=== PATIENT | female | born 1930 | race Caucasian/White ===

== ENCOUNTER 2019-05-18 22:06 | Inpatient (IN) ==
[2019-05-18] MEDS ORDERED: MORPHINE IV ONE (22:20)
[2019-05-18] MEDS ORDERED: DUONEB (A & A) INH ONE (22:20)
[2019-05-18 23:30] LABS: BASO# 0.01 X1000 (0.0-0.2); BASO% 0.1 % (0.0-0.8); HEMATOCRIT 37.2 % (37.0-47.0); HEMOGLOBIN 11.3 g/dL (12.0-16.0); IMM GRAN# 0.03 X1000 (0.0-0.04); IMM GRAN% 0.2 % (0.0-0.5); LYMPH# 0.55 X1000 (1.2-3.4); LYMPH% 4.5 % (20.5-51.1); MCH 24.7 PG (27-31); MCHC 30.4 g/dL (33-37); MCV 81.2 FL (81-99); MONO# 0.65 X1000 (0.11-0.59); MONO% 5.3 % (1.7-9.3); MPV 10.6 FL (7.4-10.4); NEUT# 11.03 X1000 (1.4-6.5); NEUT% 89.9 % (42.2-75.2); PLT 262 X1000 (130-400); RBC 4.58 XMIL (4.2-5.4); RDW 17.7 % (11.5-14.5); WBC 12.27 X1000 (4.8-10.8)
[2019-05-18 23:32] LABS: AGAP 16; ALB/GLOB RATIO 1.6; ALKALINE PHOSPHATASE 91 U/L (32-104); BUN 13 mg/dL (8-22); CALCIUM 8.6 mg/dL (8.8-10.2); CHLORIDE 96 mmol/L (98-107); CK PROFILE 31 U/L (24-173); COSMO 267; CREATININE 0.8 mg/dL (0.5-0.9); ESTIMATED GFR > 60; GLUCOSE 107 mg/dL (70-104); GOT 24 U/L (10-30); GPT 14 U/L (10-36); POTASSIUM 3.5 mmol/L (3.5-5.1); SODIUM 133 mmol/L (136-145); TCO2 21 mmol/L (25-35); TOTAL BILIRUBIN 0.39 mg/dL (0.20-1.00); TOTAL PROTEIN 6.5 g/dL (6.3-8.3)
[2019-05-18 23:33] LABS: INR 1.1; PROTIME 14.3 Seconds (11.0-16.0); PTT 27.2 Seconds (22.3-41.8)
[2019-05-19] MEDS ORDERED: ZOSYN 3.375 GM in NS 50 ML IV ONE (00:27)
[2019-05-19] MEDS ORDERED: VANCOMYCIN 1 GM/NS 1 GM/250 ML IVPB IV ONE (00:27)
[2019-05-19] MEDS ORDERED: NS 1,000 ML IV ONE ×3 (00:28→10:27)
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
[2019-05-19] MEDS ORDERED: DUONEB (A & A) INH PRN ×2 (01:15→06:19)
[2019-05-19] MEDS ORDERED: TYLENOL PO ONE ×2 (02:04→05:49)
[2019-05-19] MEDS: DUONEB (A & A) INH SCH ×7 (03:35→23:30)
[2019-05-19] MEDS ORDERED: TYLENOL PO PRN (05:48)
--- NOTE | 2019-05-19 05:55 | Diag Imaging Result Doc PS360 ---
EXAM: CHEST-1 VIEW HISTORY: sob, fever TECHNIQUE: Single view COMPARISON: 03/24/2019 FINDINGS: The lungs are well expanded. No cardiomegaly. Small right pleural effusion. There are increased interstitial markings. Right perihilar density. Small hiatal hernia. IMPRESSION: Pneumonia with pulmonary edema. Short-term follow-up or CT recommended to ensure there is no right perihilar mass. Electronically signed by Jean Vasquez 05/19/2019 5:52 AM
[2019-05-19] MEDS ORDERED: ROCEPHIN 1 GM in NS 50 ML IV SCH (06:15)
[2019-05-19] MEDS ORDERED: LASIX IV SCH (06:15)
[2019-05-19] MEDS ORDERED: ZITHROMAX 500 MG/NS 500 MG/250 ML IVPB IV SCH (06:15)
[2019-05-19 06:44] LABS: ALLEN TEST YES; BE -3.7 mmoll (-3.0-3.0); BLOOD TYPE ARTERIAL; HCO3-(ACT) 21.8 mmoll (20.0-26.0); METHB 0.8 % (0.0-1.5); O2(CT) 14.2 mL/dL (15.0-23.0); PCO2(98.6) 34 mmHg (35-45); SAMPLE BLOOD; SAO2 88.5 % (95.0-100.0); THB 11.8 g/dL (11.5-17.4); pH(98.6) 7.39 (7.35-7.45)
[2019-05-19 06:47] LABS: MODALITY CANNULA; O2HB 85.8 % (95.0-99.0); PO2(98.6) 44 mmHg (60-100)
[2019-05-19] MEDS ORDERED: PROTONIX PO SCH (07:00)
[2019-05-19] MEDS ORDERED: PRILOSEC PO SCH (07:00)
--- NOTE | 2019-05-19 07:44 | Diag Imaging Result Doc PS360 ---
EXAM: PELVIS HISTORY: fall, hip pain TECHNIQUE: Single view COMPARISON: 10/14/2010 FINDINGS: Long-standing bilateral hip and pubic symphysis arthritis. No fracture or dislocation. IMPRESSION: No acute bony injury. Electronically signed by Jean Vasquez 05/19/2019 7:42 AM
--- NOTE | 2019-05-19 07:47 | Diag Imaging Result Doc PS360 ---
EXAM: LUMBAR SPINE HISTORY: fall back pain TECHNIQUE: AP and lateral with obliques, five views COMPARISON: None. FINDINGS: Prominent degenerative changes with several vacuum discs. Disc space narrowing and subluxation of L4-5. No acute fracture. Prominent atherosclerosis. IMPRESSION: No acute bony injury. Electronically signed by Jean Vasquez 05/19/2019 7:45 AM
[2019-05-19] MEDS: LOPRESSOR PO SCH ×2 (08:36→21:29)
[2019-05-19] MEDS: CYMBALTA PO SCH (08:36)
[2019-05-19] MEDS: ZYLOPRIM PO SCH (08:36)
[2019-05-19] MEDS: SYNTHROID PO SCH (08:36)
[2019-05-19] MEDS: ZOLOFT PO SCH (08:37)
[2019-05-19] MEDS: MYCOSTATIN SUSP PO SCH ×4 (08:44→21:29)
[2019-05-19] MEDS ORDERED: PLETAL PO SCH (09:00)
--- NOTE | 2019-05-19 09:03 | Diag Imaging Result Doc PS360 ---
EXAM: CHEST-1 VIEW HISTORY: positive sepsis TECHNIQUE: Single view COMPARISON: 05/18/2019 FINDINGS: Worsening atelectasis and infiltrates in the right lung. There is a small to moderate-sized right pleural effusion. Left lung remains well expanded and clear. Mild pulmonary edema. IMPRESSION: Interval worsening Electronically signed by Jean Vasquez 05/19/2019 9:00 AM
[2019-05-19] MEDS ORDERED: NS 1,000 ML ONE (10:13)
[2019-05-19 10:25] LABS: BASO# 0.02 X1000 (0.0-0.2); BASO% 0.2 % (0.0-0.8); HEMATOCRIT 36.6 % (37.0-47.0); HEMOGLOBIN 11.1 g/dL (12.0-16.0); IMM GRAN# 0.03 X1000 (0.0-0.04); IMM GRAN% 0.3 % (0.0-0.5); LYMPH# 0.64 X1000 (1.2-3.4); LYMPH% 5.4 % (20.5-51.1); MCH 25.1 PG (27-31); MCHC 30.3 g/dL (33-37); MCV 82.6 FL (81-99); MONO# 0.68 X1000 (0.11-0.59); MONO% 5.7 % (1.7-9.3); MPV 9.9 FL (7.4-10.4); NEUT# 10.47 X1000 (1.4-6.5); NEUT% 88.4 % (42.2-75.2); PLT 231 X1000 (130-400); RBC 4.43 XMIL (4.2-5.4); WBC 11.84 X1000 (4.8-10.8)
[2019-05-19] MEDS ORDERED: VANCOMYCIN IV PER PHARMACY MISC SCH (10:30)
[2019-05-19 10:31] LABS: INR 1.28; PROTIME 16.2 Seconds (11.0-16.0)
[2019-05-19 10:32] LABS: PTT 28.5 Seconds (22.3-41.8)
[2019-05-19 10:39] LABS: BANDS 2 % (0-1); LYMPHS 20 % (21-51); MONO 4 % (1-9); SEGS 74 % (42-75)
[2019-05-19 10:50] LABS: URINE SOURCE CATH
[2019-05-19 10:50] LABS: ALB/GLOB RATIO 1.8; ALBUMIN 3.7 g/dL (3.5-5.0); CALCIUM 7.9 mg/dL (8.8-10.2); CREATININE 1.2 mg/dL (0.5-0.9); TOTAL BILIRUBIN 0.44 mg/dL (0.20-1.00); TOTAL PROTEIN 5.8 g/dL (6.3-8.3)
--- NOTE | 2019-05-19 10:57 | INFECTIOUS DISEASE CONSULT REP ---
DATE: 05/19/2019 CONCLUSION: The patient has a right perihilar infiltrate which appears to be pneumonia. She also has underlying pulmonary edema. The patient appears to have oral candidiasis. RECOMMENDATIONS: I agree with treating the patient with Rocephin and azithromycin. I have ordered a sputum Gram stain and culture to be done as soon as possible, and also I have ordered immunoglobulin levels. I am going to order nystatin swish and swallow. DISCUSSION: The patient is unable provide a history. The history I got was from the patient's daughter. Approximately 1 day ago the patient started having fever and pulmonary congestion. The daughter states that the patient did cough up some sputum and it had a green color. Her temperature got as high as 103, according to the daughter. Studies done thus far show a CBC with a white blood cell count of 12,270, hemoglobin 11.3, and platelet count 262,000. Blood gases show a pH of 7.39, a PO2 of 44, and a pCO2 of 34. Creatinine is 0.8. GFR is greater than 60. Liver function studies are normal. Blood cultures are pending. Chest x-ray shows right perihilar pneumonia and pulmonary edema. PAST MEDICAL HISTORY/REVIEW OF SYSTEMS: Eyes and Ears: The patient has decreased vision and hearing. Neck: No stiffness. Respiratory: See present illness. Cardiac: No chest pain or palpitations. Gastrointestinal: No nausea, vomiting, or diarrhea. Genitourinary: No dysuria or flank pain. Neurologic: No seizures. No recent loss of motor or sensory function. Integumentary: No rash. OBSTETRIC/GYNECOLOGIC HISTORY: She is a 4, para 4, abortus 0. She had a tubal ligation. PREVIOUS HOSPITALIZATIONS AND OPERATIONS: She has had 4 labor and deliveries, a tubal ligation, a cholecystectomy, abdominal hernia repair, bilateral total knee arthroplasties, and bronchitis. MEDICAL DISEASES: The patient is elderly. She has hypertension and congestive heart failure, hypothyroidism and gastroesophageal reflux disease. INFECTIOUS DISEASE HISTORY: Positive for bronchitis and the daughter does not know for sure, but she thinks her mother is in the past had pneumonia and urinary tract infection. FAMILY HISTORY: Positive for cancer and hypertension. SOCIAL HISTORY: [place] She is . She has a dog as a pet. She does not smoke cigarettes, drink alcoholic beverages or abuse drugs. ALLERGIES: Her only allergy is to iodinated contrast media. MEDICATIONS: The medications taken at home include the following: Allopurinol, cilostazol, Cymbalta, Synthroid, Ativan, Lopressor, Protonix, sertraline, and temazepam. PHYSICAL EXAMINATION: Vital Signs: Temperature earlier was 102.4, now it is 98.4. Pulse 102, respirations 19, blood pressure 152/84. The patient weighs 163 pounds. She is 5 feet 3 inches tall. General: This is an obese, elderly female who is in respiratory distress. Head/Eyes/Ears/Nose/Throat: It was difficult for me to test how good her seeing and vision was because she is in respiratory distress. She does seem to have on her tongue some white coating, which would be suspicious for Archana. Neck: No meningismus. Lungs: Bilateral rhonchi. Cardiovascular: Heart rate is regular. The patient has bilateral leg edema. Abdomen: The abdomen is protuberant it is soft. Bowel sounds are present. The patient did say it hurt her when I palpated the abdomen gently. Extremities: Bilateral leg edema with but no erythema. Neurologic: The patient is in respiratory distress. She did she did answer a question that I asked her and she did move her extremities to request. Thank you for the consultation. cc: MD Miri Salinas MD MTDD
[2019-05-19 10:59] LABS: BILIRUBIN URINE NEGATIVE (NEGATIVE); BLOOD URINE NEGATIVE (NEGATIVE); COLOR YELLOW; GLUCOSE URINE NEGATIVE (NEGATIVE); KETONE URINE NEGATIVE (NEGATIVE); LEUKOCYTES URINE NEGATIVE (NEGATIVE); NITRITE URINE NEGATIVE (NEGATIVE); PROTEIN URINE NEGATIVE (NEGATIVE); SP GRAVITY URINE 1.008; TURBIDITY URINE CLEAR (CLEAR); UROBILINOGEN URINE NORMAL (NORMAL)
[2019-05-19 11:00] LABS: UR EPITHELIAL CELLS <10 /HPF (<10); URINE BACTERIA NEGATIVE /HPF; URINE RBC <10 /HPF (<10); URINE WBC <10 /HPF (<10)
--- NOTE | 2019-05-19 11:11 | PROGRESS NOTE ---
DATE: 05/19/2019 SUBJECTIVE: The patient's chart was reviewed. In summary, patient was admitted in the [facility] hours with underlying pneumonia and associated pulmonary edema. The question was raised as to the possibility of a right perihilar density/mass. The patient was provided IV antibiotics in the emergency department. Admission was arranged. I was contacted this morning from the PVC unit secondary to significant decline in patient's overall status. The patient was noted to be breathing greater than 30 times per minute. Blood pressure had dropped with a systolic less than 100. Upon my arrival, patient was in notable respiratory distress, although was able to communicate verbally. Patient's family was at bedside. Upon discussing history with family, the patient was treated for pneumonia on February 24. The patient did reasonably well after a prolonged course of antibiotic intervention. Patient's family has noted a decrease in her energy over the last 2 months. Yesterday, she began coughing. The cough was noted to be productive of a purulent sputum. She was started on azithromycin and a Medrol Dosepak. In early afternoon, she suffered a fall while preparing for Thanksgiving lunch. Yesterday evening, patient's daughter noted her to be more fatigued. Temperature was noted to be 102.7. She was brought to the emergency department. Currently, patient does note shortness of breath. She also notes some pain in her tailbone, but denies chest pains, or palpitations currently. She is afebrile. She denies nausea, vomiting, abdominal or urinary symptoms. OBJECTIVE: Vital Signs: Temperature 102.4 degrees, heart rate 102, respirations 34, blood pressure 94/48. General: Ill-appearing, moderate respiratory distress. Cardiovascular: Slightly tachycardic. Regular rhythm. No significant murmurs, rubs, or gallops. Pulmonary: Decreased breath sounds bilateral bases. Reasonable air movement. Abdomen: Soft, nontender, nondistended. Positive bowel sounds. Extremities: Moves all extremities well. No significant clubbing, cyanosis, or edema. Dermatologic: Evaluation reveals no evidence of rash. LABORATORY DATA: White blood cell count 11.84, hemoglobin 11.1, hematocrit 36.6, platelet count is 231,000. PT 16.2, INR is 1.28, PTT is 28.5. Sodium 133, potassium 3.5, chloride 96, bicarbonate 21. BUN 13, creatinine 0.8, glucose 107, calcium 8.6, total bilirubin 0.39, total protein 6.5, albumin 4.0, alkaline phosphatase 91. AST 24, ALT 14. ProBNP is elevated at 1545. ASSESSMENT AND PLAN: 1. Community-acquired pneumonia with associated sepsis--patient's overall condition has declined since admission. We will arrange transfer to the intensive care unit. A bolus of normal saline was provided. We will follow this by normal saline at 100 mL an hour. Pressor support will be provided if necessary. We will adjust antibiotics to include Zosyn, levofloxacin and vancomycin therapy. We will follow blood and urine cultures. We will check a sputum culture. We will address patient's respiratory failure as described below. 2. Respiratory failure secondary to underlying pneumonia--as above, upon my evaluation, patient was in mild to moderate respiratory distress. The patient will be placed on BiPAP for comfort reasons and for oxygenation reasons. Dr. King has been consulted. We will treat patient's underlying pneumonia and sepsis as described above. We will continue DuoNebs every 4 hours. 3. Questionable hilar mass--chest x-ray from March did not suggest an underlying mass. This certainly could be simply secondary to underlying pneumonia. Once her clinical condition has stabilized, we will plan CT scan of the chest. We will remain aware that she is allergic to iodine contrast. 4. Hypotension--this is a consequence of her underlying sepsis. We will treat patient with intravenous fluids. As above, we will start pressor support if necessary. 5. Elevated ProBNP--the patient's recent stress testing suggested she had a normal ejection fraction. I suspect this is falsely elevated. We will, however, need to monitor patient's pulmonary status closely with providing intravenous fluids in the setting of her having an underlying effusion and possible edema. At this point, the benefits of maintaining her underlying pressure outweighs the risk of intravenous fluids. We will follow this closely. 6. Ankylosing spondylitis--we will remain aware. 7. Recent fall--patient denies having a syncopal episode associated. X-rays did not suggest bony abnormalities. We will continue supportive care. 8. Hypothyroidism--we will continue patient on levothyroxine replacement. 9. Depression--we will continue patient on Cymbalta therapy. 10. Reflux disease--we will continue patient on pantoprazole therapy. 11. Fluid, electrolytes, nutrition. We will monitor electrolytes. Normal saline bolus followed by 100 mL an hour on nothing by mouth prophylaxis. Patient will initially be placed on sequential compression devices. We will consider low-dose Lovenox once her condition has stabilized. cc: MD Miri Street MD
[2019-05-19] MEDS ORDERED: SODIUM CHLORIDE 0.9% INJ SCH (11:30)
--- NOTE | 2019-05-19 11:32 | EKG Report ---
Test Performed on : 05/19/2019 09:48:54 AM Test Reason : sob Blood Pressure : / mmHG Vent. Rate : 096 BPM Atrial Rate : 096 BPM P-R Int : 176 ms QRS Dur : 078 ms QT Int : 390 ms P-R-T Axes : 040 -14 035 degrees QTc Int : 492 ms Sinus rhythm. with premature atrial complexes. Moderate voltage criteria for LVH, may be normal variant Prolonged QT Abnormal ECG When compared with ECG of 28-OCT-2012 09:52, premature atrial complexes. are now present Criteria for Septal infarct are no longer present T wave amplitude has increased in Anterior leads Confirmed by Don DUTTON, P.J.M ([id number]) on 05/20/2019 2:56:46 PM
[2019-05-19] MEDS ORDERED: VANCOMYCIN 1,450 MG in NS 250 ML IV ONE (12:00)
--- NOTE | 2019-05-19 12:27 | HISTORY AND PHYSICAL ---
CHIEF COMPLAINT: Cough for about 1 to 2 days. HISTORY OF PRESENT ILLNESS: Ms Sherron Duran is an 89-year-old female with a history of multiple medical conditions including congestive heart failure, hypertension, gastroesophageal reflux disease as well as a hyperlipidemia. The patient did experience a fall prior to presentation. When she presented to the emergency room, she also gives a history of having a cough which has been present for about 1 to 2 days, productive of greenish-yellow sputum. She has had associated shortness of breath as well as wheezing. She does not have any hemoptysis, no chest pain and she does not smoke cigarettes. She did have a chest x-ray done at the time of presentation which showed evidence of pneumonia with pulmonary edema. The patient has now been admitted to the floor now for further management. Of note, according to the patient's daughter, the patient was diagnosed with pneumonia sometime in February and was given some antibiotics. PAST MEDICAL HISTORY: Obstructive sleep apnea, congestive heart failure, diverticulosis, irritable bowel syndrome, hypertension, gastroesophageal reflux disease, hyperlipidemia, hypothyroidism, ankylosing spondylitis, spondylosis, mixed hyperlipidemia, major depression, recurrent gout. SOCIAL HISTORY: No history of cigarette smoking, alcohol or drug use. ALLERGIES: Patient is allergic to IV contrast dye. FAMILY HISTORY: Positive for cancer. PAST SURGICAL HISTORY: Patient has had bilateral tubal ligation, bilateral total knee surgery as well as a cholecystectomy. She has also had abdominal hernia repair, and also gum surgery. MEDICATIONS: Allopurinol 300 mg p.o. daily, levothyroxine 112 mcg p.o. daily, potassium 20 mEq p.o. daily, temazepam 50 mg p.o. at bedtime, cilostazol 100 mg p.o. twice a day, Cymbalta 60 mg p.o. daily, metoprolol 50 mg p.o. twice a day, pantoprazole 40 mg p.o. daily, sertraline 100 g p.o. daily, azithromycin 200 mg p.o. daily, benzonatate 100 mg p.o. daily, Lorazepam 0.5 mg every 6 to 8 hours p.r.n. REVIEW OF SYSTEMS: Constitutional: Has fever. Central nervous system: Has headaches. Eyes: Has blurred vision. ENT: Has impaired hearing. Cardiovascular: No chest pain. Gastrointestinal: Has some nausea along with some intermittent diarrhea with constipation. No abdominal pain. Genitourinary: No dysuria. Musculoskeletal: Has ankylosing spondylitis. Hematology: No bleeding problems. Dermatologic: No skin lesions. Psychiatric: Has anxiety with depression. Endocrinology: No diabetes or thyroid disease. PHYSICAL EXAMINATION: VITAL SIGNS: Temperature is 100.7 degrees, pulse is 109, respiratory rate 28, blood pressure 160/88, oxygen saturation is 92%. HEENT: Atraumatic, normocephalic. She is anicteric. No oral lesions but mucosa around the mouth look dry. NECK: No lymphadenopathy or thyromegaly. CARDIOVASCULAR: S1, S2. She does have rales in both lung aldrich. ABDOMEN: Soft, nontender. No masses felt. EXTREMITIES: No evidence of edema. CENTRAL NERVOUS SYSTEM: No obvious focal deficits noted. LABORATORY DATA: WBC is 12.27, hematocrit is 37.2 with a platelet count of 262,000. Sodium is 133, potassium 3.5, chloride 96, bicarb 21, BUN is 13, creatinine 0.8. INR is 1.1. IMAGING: X-ray chest shows pulmonary edema with pneumonia. Short-term followup or CT scan recommended to ensure that there is no right perihilar mass. ASSESSMENT AND PLAN: 1.Acute hypoxic respiratory failure.Oxygen supplementation. Treat pulmonary conditions-pneumonia/pulmonary edema Consult with Pulmonology. 2 Community-acquired Pneumonia. Place patient on empiric antibiotics. Obtain sputum as well as blood cultures. Nebulized bronchodilators as needed. 3. Sepsis. Continue antibiotics. Follow up on cultures. Intravenous fluids as needed. 4 Probable acute diastolic congestive heart failure. Monitor intakes and outputs, as well as daily weights and place patient on diuretics. Obtain 2d-Echo. 5. History of a fall prior to presentation. The patient had an x-ray of the lumbar spine as well as hip and pelvis. The official report on those studies is still pending. I have also recommended a CT scan of the brain without contrast as well as a CT scan of the C-spine. 6. Hypertension. Optimize blood pressure control. 7. Gastroesophageal reflux disease. Maintain patient on proton pump inhibitor. 8. Hypothyroidism. Check thyroid function tests. Continue levothyroxine. 9. Obstructive sleep apnea. The patient can uses her CPAP machine if she does have one from home. 10.Hyperlipidemia. Continue lipid lowering agent. 11.Deep vein thrombosis prophylaxis. Lovenox. 12. Gastrointestinal prophylaxis. Proton pump inhibitor. cc: MD Miri Carver MD [facility]
[2019-05-19] MEDS: NS 1,000 ML IV SCH ×2 (13:23→21:30)
[2019-05-19] MEDS: POTASSIUM CHLORIDE 20 MEQ/SWI 20 MEQ/100 ML IVPB IV SCH ×2 (13:23→16:32)
[2019-05-19] MEDS ORDERED: BLISTEX MEDICATED BERRY LIP BALM TOP PRN (14:39)
--- NOTE | 2019-05-19 15:25 | CONSULTATION ---
DATE OF CONSULTATION: 05/19/2019 IMPRESSION: 1. Consulted regarding possible pulmonary edema in association with pneumonia. Chest x-ray extremely impressive for right-sided pneumonia and equivocal for pulmonary edema. Pro-B natriuretic peptide level 1500 or so of unclear clinical significance. Right-sided pneumonia appears to be the primary problem and pulmonary edema is questionable. 2. Previous noninvasive cardiac studies have indicated normal left ventricular systolic function. 3. Right-sided pneumonia. 4. Obesity. 5. Hypertensive cardiovascular disease. 6. Obstructive sleep apnea. 7. Hyperlipidemia. RECOMMENDATIONS: 1. Treat for pneumonia as you are doing. 2. At present, diuresis does not appear to be useful. 3. Follow up echocardiography. HISTORY: This 89-year-old, white female with past history of obesity, hypertensive cardiovascular disease, obstructive sleep apnea, hyperlipidemia, and gastroesophageal reflux disease was admitted with several days of cough productive of green sputum. She had progressive respiratory difficulty and wheezing. There has been no chest pain. She came to the emergency room for evaluation and chest x-ray demonstrated very prominent infiltrate in the right lung. There was question of pulmonary edema. She has been admitted and started on parenteral antibiotics. She has had increasing respiratory difficulty and has been moved to the intensive care unit, and started on BiPAP. When I see her, she is on BiPAP and with some respiratory difficulty. She denies chest pain. PAST MEDICAL HISTORY: 1. Obesity. 2. Hypertensive cardiovascular disease. 3. Hyperlipidemia. 4. Gastroesophageal reflux disease. 5. Hypothyroidism. 6. Ankylosing spondylitis. 7. Depression. 8. Gout. PAST SURGICAL HISTORY: Includes bilateral tubal ligation, bilateral total knee surgery, and cholecystectomy. She has also had abdominal hernia repair and unspecified oral surgery. ALLERGIES: She is allergic or intolerant to intravenous contrast dye. MEDICATIONS PRIOR TO ADMISSION: As listed. SOCIAL HISTORY: She does not smoke nor use alcohol. FAMILY HISTORY: Negative for premature coronary disease. REVIEW OF SYSTEMS: Pulmonary: Noteworthy for cough productive of green sputum and progressive shortness of breath. Gastrointestinal: Noncontributory. Constitutional: Noteworthy for fever up to 102 degrees prior to presentation. Remainder of review of systems negative/noncontributory with 14 total systems reviewed. PHYSICAL EXAMINATION: Reveals an obese, elderly, white female on BiPAP with some respiratory difficulty. Blood pressure 114/56, heart rate 90 and regular, oxygen saturation 95%, respiratory rate 30. HEENT Examination: Extraocular movements appear intact. Mucous membranes are moist. Neck: Supple without jugular venous distention. There are no carotid bruits. Chest: Clear to auscultation anteriorly. Cardiac Examination: Reveals a regular rate and rhythm without appreciable murmur or gallop. Abdomen: Soft. Bowel sounds are normal. Extremities: Without edema. PERTINENT DATA: Twelve lead electrocardiogram demonstrates sinus rhythm with occasional premature atrial complex and minimal voltage criteria for left ventricular hypertrophy. Q-T interval is borderline prolonged. LABORATORY DATA: Includes a white blood cell count of 11.4, hematocrit 36.6, hemoglobin 11.1, platelet count 231,000. Sodium 136, potassium 3.0, chloride 99, carbon dioxide 20, BUN 15, creatinine 1.2, glucose 115. Initial troponin T less than 0.01. Followup troponin T 0.016. Lactate 3.0. cc: MD Miri Bentley MD
--- NOTE | 2019-05-19 16:08 | CONSULTATION ---
DATE OF CONSULTATION: 05/19/2019 REQUESTING PROVIDER: Dr. Neeraj Guan. REASON FOR CONSULTATION: Acute respiratory failure. HISTORY OF PRESENT ILLNESS: This is an 89-year-old, female with a medical history of obstructive sleep apnea, COPD, congestive heart failure, diverticulitis, diverticulosis, irritable bowel syndrome, hypertension, gastroesophageal reflux disease, hyperlipidemia, hypothyroidism, ankylosing spondylitis, spondylosis, major depression, and gout. She presented to the ER last night via EMS with shortness of breath, fever, and back pain after a fall at home. X-ray of the pelvis did not show any acute bony injury. However, chest x-ray showed a small right pleural effusion, increased interstitial markings, compatible with pneumonia and pulmonary edema. Apparently, she showed signs and symptoms of sepsis this morning with blood pressure dropping to 90s/40s; respiratory rate up to 30s from the 20s; fever up to 103; desaturation and required a nonrebreather eventually. Lab work this morning also shows some acute kidney injury. The patient currently is lying in bed with a BiPAP mask on. She is complaining of pain on her nasal bridge. After respiratory therapist repositions the mask, she states she is feeling better. One of patient's daughters is at the bedside but she apparently knows little about patient's current condition. All other information is obtained from the E-chart and Dr. Aaron. PAST MEDICAL HISTORY: 1. Obstructive sleep apnea, on CPAP therapy at home. 2. COPD. Per patient's daughter, patient has been treated with some kind of inhaler for many years. Recently, she switched her scrap carrier and the current scrap carrier told her that she does not have COPD. 3. Congestive heart failure. 4. Diverticulosis. 5. Irritable bowel syndrome. 6. Hypertension. 7. Gastroesophageal reflux disease. 8. Hyperlipidemia. 9. Hypothyroidism. 10. Ankylosing spondylitis. 11. Spondylosis. 12. Major depression. 13. Gout. PAST SURGICAL HISTORY: 1. Bilateral tubal ligation. 2. Bilateral total knee surgery. 3. Cholecystectomy. 4. Abdominal hernia repair. 5. Gum surgery. SOCIAL HISTORY: The patient lives at home with her family. She has a dog as a pet. She has no alcohol, tobacco, or illicit drug use. FAMILY HISTORY: Positive for cancer and hypertension. ALLERGIES: IV contrast dye. REVIEW OF SYSTEMS: Difficult to be obtained as patient is on a BiPAP mask and appears lethargic. PHYSICAL EXAMINATION: Vital Signs: Temperature 98.4, blood pressure 93/45, pulse 99, respiratory rate 30, oxygen saturation 93% on a BiPAP mask with FiO2 of 40%. General: Elderly, female lying in bed with some respiratory distress. She is on a BiPAP mask. The patient's daughter and grandchildren are at the bedside. HEENT: Atraumatic, normocephalic. Trachea midline. Respiratory: Labile tachypnea. Symmetrical excursion. Auscultation revealed early inspiratory crackles in the right lower lung zone and bilateral rhonchi. Cardiovascular: Regular rate and rhythm. Gastrointestinal: Soft, nondistended, nontender. Normoactive bowel sounds in all 4 quadrants. Extremities: Bilateral lower extremity pitting edema, 1+. No cyanosis. No clubbing. Dorsalis pedis diminished bilaterally. Neurologic: Able to follow simple commands. LAB DATA: White blood cells 11.84, hemoglobin 11.1, hematocrit 36.6, platelets 231,000. Sodium 136, potassium 3.0, chloride 99, carbon dioxide 20, BUN 15, creatinine 1.2, glucose 115, plasma lactate 3.0. IMAGING DATA: Chest x-ray this morning showed worsening atelectasis and infiltrates in the right lung with a small to moderate-sized right pleural effusion and mild pulmonary edema. Left lung remains well-expanded and clear. ASSESSMENT: This is an 89-year-old, female with a medical history of obstructive sleep apnea, chronic obstructive pulmonary disease, congestive heart failure, diverticulitis, irritable bowel syndrome, hypertension, gastroesophageal reflux disease, hyperlipidemia, hypothyroidism, ankylosing spondylitis, spondylosis, major depression, and gout. She has been admitted today with community-acquired pneumonia, acute hypoxic respiratory failure, probable acute diastolic congestive heart failure, and sepsis. 1. Acute hypoxic respiratory failure. 2. Septic shock. 3. Pneumonia with worsening atelectasis, [id number] sized right pleural effusion, and mild pulmonary edema. 4. Possible acute congestive heart failure exacerbation. 5. Mild acute kidney injury. PLAN: 1. Continue BiPAP with oxygen protocol as needed. 2. Continue antibiotics per Dr. Jimenez. Continue bronchodilators. 3. Follow up with CT of the thorax, ABG, CBC, BMP, blood culture, sputum culture, calcitonin, and urine culture. 4. Continue GI and DVT prophylaxis. 5. Further recommendations pending hospital course. Thank you for the courtesy of this consult. Dictated by MYKEL Malik for Sumit Kign MD cc: MYKEL Malik MD M. Neel Roberts, MD [facility]
[2019-05-19] MEDS: ZOSYN 3.375 GM in NS 50 ML IV SCH ×3 (16:29→21:29)
[2019-05-19] MEDS: LEVAQUIN 500 MG/D5W 500 MG/100 ML IVPB IV SCH (16:29)
[2019-05-19 17:57] LABS: ALLEN TEST YES; BE -6.8 mmoll (-3.0-3.0); BLOOD TYPE ARTERIAL; HCO3-(ACT) 19.5 mmoll (20.0-26.0); METHB 0.7 % (0.0-1.5); O2(CT) 17.3 mL/dL (15.0-23.0); O2HB 93.8 % (95.0-99.0); PCO2(98.6) 31 mmHg (35-45); PO2(98.6) 60 mmHg (60-100); SAMPLE BLOOD; SAO2 96.8 % (95.0-100.0); THB 13.1 g/dL (11.5-17.4); pH(98.6) 7.36 (7.35-7.45)
[2019-05-19 17:58] LABS: MODALITY BI PAP
[2019-05-19] MEDS: HALDOL IV PRN (19:49)
[2019-05-19] MEDS ORDERED: RESTORIL PO SCH (21:00)
--- NOTE | 2019-05-19 21:10 | Diag Imaging Result Doc PS360 ---
EXAM : CT HEAD/C-SPINE W/O CONTRAST HISTORY: HISTORY OF FALL TECHNIQUE: 1. CT head without contrast 2. CT cervical spine without contrast COMPARISON: Cervical spine compared to 09/03/2015 FINDINGS: Head: No parenchymal hemorrhage. No epidural or subdural hematoma. No subarachnoid hemorrhage. Mild atrophy. No mass identified on this noncontrasted exam. No hydrocephalus. No skull fracture. Cervical spine: Markedly suboptimal exam due to the patient's extreme kyphosis. Old injury to the right side of the posterior arch of the C1 vertebra which was present on the prior exam. 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 There are degenerative changes. No subluxation. IMPRESSION: Head: No hemorrhage. No injury. Cervical spine: No acute fracture identified. This exam was performed using automated exposure control, adjustment of mA or kV according to patient size, and/or use of iterative reconstruction technique. Electronically signed by Jean Vasquez 05/19/2019 9:08 PM
--- NOTE | 2019-05-19 21:17 | Diag Imaging Result Doc PS360 ---
EXAM: CT THORAX W/O CONTRAST HISTORY: R. perihilar mass TECHNIQUE: CT chest without contrast COMPARISON: None. FINDINGS: Dense multifocal pneumonia with air bronchograms. The heart is enlarged. Trace right effusion. Prominent atherosclerosis. Mildly prominent lymph nodes. Moderate sized hiatal hernia. Prominent degenerative spine changes. IMPRESSION: Pneumonia. This exam was performed using automated exposure control, adjustment of mA or kV according to patient size, and/or use of iterative reconstruction technique. Electronically signed by Jean Vasquez 05/19/2019 9:14 PM
[2019-05-20] MEDS: NS 1,000 ML IV SCH (02:07)
[2019-05-20] MEDS: HALDOL IV PRN ×3 (03:18→23:16)
[2019-05-20] MEDS: DUONEB (A & A) INH SCH ×6 (03:47→23:30)
[2019-05-20] MEDS: ZOSYN 3.375 GM in NS 50 ML IV SCH ×2 (03:49→10:15)
[2019-05-20 04:40] LABS: ALLEN TEST YES; BLOOD TYPE ARTERIAL; HCO3-(ACT) 18.7 mmoll (20.0-26.0); METHB 1.1 % (0.0-1.5); O2(CT) 14.1 mL/dL (15.0-23.0); O2HB 96.6 % (95.0-99.0); PCO2(98.6) 30 mmHg (35-45); PO2(98.6) 98 mmHg (60-100); SAMPLE BLOOD; SAO2 99.3 % (95.0-100.0); THB 10.3 g/dL (11.5-17.4); pH(98.6) 7.35 (7.35-7.45)
[2019-05-20 04:41] LABS: MODALITY BI PAP
[2019-05-20] MEDS: TYLENOL PO PRN (05:50)
[2019-05-20] MEDS: SYNTHROID PO SCH ×2 (05:50→06:21)
[2019-05-20 06:01] LABS: BASO# 0.01 X1000 (0.0-0.2); BASO% 0.1 % (0.0-0.8); EOS# 0.01 X1000 (0.0-0.7); EOS% 0.1 % (0.0-10.0); HEMATOCRIT 31.5 % (37.0-47.0); HEMOGLOBIN 9.5 g/dL (12.0-16.0); IMM GRAN# 0.09 X1000 (0.0-0.04); IMM GRAN% 0.8 % (0.0-0.5); LYMPH# 0.63 X1000 (1.2-3.4); LYMPH% 5.7 % (20.5-51.1); MCHC 30.2 g/dL (33-37); MCV 82.9 FL (81-99); MONO# 0.55 X1000 (0.11-0.59); MPV 10.8 FL (7.4-10.4); NEUT# 9.79 X1000 (1.4-6.5); NEUT% 88.3 % (42.2-75.2); PLT 179 X1000 (130-400); RDW 18.2 % (11.5-14.5); WBC 11.08 X1000 (4.8-10.8)
[2019-05-20 06:33] LABS: ALB/GLOB RATIO 1.2; CALCIUM 7.6 mg/dL (8.8-10.2); CREATININE 1.4 mg/dL (0.5-0.9); POTASSIUM 2.9 mmol/L (3.5-5.1); TOTAL BILIRUBIN 0.43 mg/dL (0.20-1.00); TOTAL PROTEIN 5.6 g/dL (6.3-8.3)
--- NOTE | 2019-05-20 07:14 | Diag Imaging Result Doc PS360 ---
EXAM: CHEST-1 VIEW HISTORY: Dyspnea TECHNIQUE: Single view COMPARISON: 05/19/2019 FINDINGS: There are dense infiltrates as well as atelectasis in the right lung. Small infiltrates in the left base. There is moderate sized hiatal hernia. Heart is enlarged. Small right effusion. IMPRESSION: Worsening pneumonia Electronically signed by Jean Vasquez 05/20/2019 7:11 AM
[2019-05-20 07:51] LABS: BANDS 7 % (0-1); LYMPHS 19 % (21-51); MONO 11 % (1-9); SEGS 63 % (42-75)
[2019-05-20] MEDS: LOPRESSOR PO SCH ×3 (08:40→23:50)
[2019-05-20] MEDS: ZOLOFT PO SCH (08:40)
[2019-05-20] MEDS: ZYLOPRIM PO SCH (08:40)
[2019-05-20] MEDS: PROTONIX IV SCH (08:41)
[2019-05-20] MEDS: CYMBALTA PO SCH (08:41)
[2019-05-20] MEDS: MYCOSTATIN SUSP PO SCH ×4 (08:42→23:48)
--- NOTE | 2019-05-20 10:03 | PROGRESS NOTE ---
DATE: 05/20/2019 SUBJECTIVE: Over the course of the last 24 hours, patient's condition has remained serious/critical. I was contacted and adjusted management of care throughout the evening as well as early this morning. In summary, upon my arrival to evaluate patient yesterday morning, she was noted to be in respiratory distress. She was started on BiPAP therapy. Laboratory data was significant for a metabolic acidosis which was compensated. The antibiotics were adjusted. By early afternoon, I was contacted and blood cultures were positive for gram-negative rods. Aggressive IV intervention had already been introduced. Throughout the day, patient had difficulty tolerating BiPAP; however, her heart rate and respiratory rate decreased, and her blood pressure improved. By the evening, patient was noted to have considerable agitation. With systolic blood pressure in the low 100s, it was felt benzodiazepine intervention was not appropriate. I discussed case with Dr. King. He contacted the ICU and place patient on as- needed Haldol. Late in the evening/stull installer, I was contacted in regards to concern for volume overload state. The patient's IV fluids were decreased. Ultimately, patient rested for approximately 4 hours. This morning, upon my arrival, the patient's BiPAP had been removed for medication administration. The patient was interactive, but with continued respiratory compromise. The patient complained of some back pain and a sore throat. She noted consistent shortness of breath. Temperature has trended downwards. Additional vital signs have remained stable. There has been no evidence of fever. Since yesterday morning, she denies nausea, vomiting, or chest discomfort. OBJECTIVE: Vital Signs: T-max 103.0 degrees, heart rate 85 to 116, respirations 21 to 38, blood - pressure 85-158/38-95. General: Ill-appearing with mild to moderate respiratory distress. Cardiovascular: Borderline tachycardic, irregular rhythm. No significant murmurs, rubs, or gallops. Pulmonary: Crackles at bilateral bases. Reasonable air movement. Abdomen: Soft, nontender, nondistended. Positive bowel sounds. Extremities: Moves all extremities well. No significant clubbing or cyanosis, 1+ lower extremity edema bilaterally. Dermatologic: Evaluation reveals no evidence of rash. LABORATORY DATA: White blood cell count 11.08, hemoglobin 9.5, hematocrit 31.5, platelet count 179,000. Sodium 142, potassium 3.9, chloride 107, bicarbonate 16. BUN 26, creatinine 1.4, glucose 107, calcium 7.6. Total bilirubin 0.43, total protein 5.6, albumin 3.0. Alkaline phosphatase 60, AST 21, ALT 12. TSH 2.86. A pH 7.35, pCO2 30, PO2 98, bicarbonate 18.7. Lactate 2.30. ASSESSMENT AND PLAN: 1. Pneumonia, not otherwise specified, with associated gram-negative bacteremia and sepsis-the patient's condition remains very serious/critical. As described below in respiratory failure, patient has required significant support to maintain control of her respiratory status. We will continue broad-spectrum antibiotics with Zosyn, levofloxacin and vancomycin therapy. We will follow up positive identification of blood cultures. We will check urine culture and sputum culture. We will continue supportive care in the intensive care unit setting. I appreciate Dr. King's consultation. 2. Respiratory failure secondary to pneumonia/sepsis-on patient's chest x-ray, there does appear to be progression of her pneumonia. Arterial blood gas is consistent with a metabolic acidosis with compensating respiratory alkalosis. I remain concerned that with the patient's increased work of breathing off of BiPAP, she is at high risk for fatiguing. We will resume patient's BiPAP this morning. We will follow closely with Dr. King. We will continue DuoNeb every 4 hours and broad-spectrum antibiotics as above. I discussed case in detail with patient's family. They understand that she remains at high risk for further respiratory compromise and possible need for mechanical ventilatory support. 3. Questionable hilar mass-this was noted per chest x-ray. CT scan, however, suggested only pneumonia. We will remain aware. 4. Hypotension-this is a consequence of her underlying sepsis. She has been treated with aggressive intravenous hydration. She has not required pressor support to date. We will continue to follow this closely. As described above, her intravenous fluids were required to be decreased last night secondary to a volume overload state. 5. Elevated Pro BNP-we will remain aware. 6. Ankylosing spondylitis-we will remain aware. 7. Recent fall-this likely was secondary to fatigue in the setting of her underlying sepsis. There was no evidence of fractures per CT scans and x-rays. We will follow. 8. Hypothyroidism-we will continue levothyroxine replacement. 9. Depression/anxiety-patient is treated with both Zoloft and Cymbalta as an outpatient. As she is having difficulty taking medications, we will hold this for now. She has Haldol to be used as needed for agitation and anxiety. 10. Reflux disease-we will continue patient on pantoprazole therapy. 11. Prophylaxis-we will start patient on low-dose Lovenox. 12. Disposition-at this point, patient continues to require snf care in the intensive care unit setting. We will plan transfer to the floor once appropriate. cc: MD Miri Street MD
[2019-05-20] MEDS: POTASSIUM CHLORIDE 20 MEQ/SWI 20 MEQ/100 ML IVPB IV SCH ×2 (10:15→12:15)
[2019-05-20] MEDS ORDERED: MAGNESIUM SULFATE 2 GM/S.W.I. 2 GM/50 ML IVPB IV ONE (10:17)
[2019-05-20] MEDS ORDERED: ROCEPHIN 2 GM in NS 50 ML IV SCH (11:00)
[2019-05-20] MEDS: LEVAQUIN 500 MG/D5W 500 MG/100 ML IVPB IV SCH (12:00)
[2019-05-20] MEDS: ROCEPHIN 2 GM in NS 50 ML IV SCH ×2 (12:00→23:45)
--- NOTE | 2019-05-20 12:03 | INFECTIOUS DISEASE PROGRESS NO ---
DATE: 05/20/2019 PRESENT ILLNESS: The patient has severe bilateral pneumonia. She has a positive blood culture for Haemophilus. 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 The patient also appears to have oral candidiasis. MEDICATIONS: The patient was receiving Levaquin, vancomycin and Zosyn as well as nystatin swish and swallow. PHYSICAL EXAMINATION: Vital Signs: Temperature is 98 degrees, pulse is 89, respirations 30, blood pressure 107/62. General: This is an ill-appearing elderly female who is in acute respiratory distress. Head/eyes/ears/nose/throat: She can hear my spoken words and see near objects. She seems to have less white coating of her tongue than yesterday. There is no drainage from the nose or ears. Neck: No pain with movement. Lungs: Bilateral rhonchi and rales. She is in acute respiratory distress. Cardiovascular: Heart rate, most of the time seems regular. There are runs where it is irregular. Abdomen: Soft and does not appear to be tender. Neurologic: The patient is lethargic. However, she did move her extremities to request. There was no tremor. Integument: No rash. LAB AND X-RAY: Patient's blood culture is growing a gram-negative viral which has been identified as Haemophilus. Chest x-ray shows that the bilateral infiltrates are worsening. [place] [address], hemoglobin 9.5, and platelet count 179,000. Blood gases show a pH of 7.35, a PO2 of 98, and a pCO2 of 30. Creatinine is 1.4. GFR is 36. Liver function studies are normal. ASSESSMENT AND PLAN: Patient has Haemophilus bacteremia almost certainly arising from Haemophilus pneumonia. 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 I have discontinued vancomycin and Zosyn and instead I put the patient on Rocephin 2 g IV every 12 hours. I am going to leave Levaquin to be given also. If the patient's IgG level is less than 600, then I would suggest giving 1 dose of IVIG of 20 g tomorrow and then if the count is very low, then I would give the 40 g tomorrow. If IgA is low there is no product that can increase it. COMORBIDITIES: She is elderly. She also has congestive heart failure and gastroesophageal reflux disease. cc: MD Miri Salinas MD [facility]
[2019-05-20] MEDS: LOVENOX SUBQ SCH (13:41)
[2019-05-20] MEDS ORDERED: GEODON IM ONE (17:38)
[2019-05-20] MEDS ORDERED: GEODON IM PRN (17:38)
[2019-05-20] MEDS ORDERED: STERILE WATER INJ. INJ ONE (17:38)
[2019-05-20] MEDS ORDERED: STERILE WATER INJ. INJ PRN (17:38)
[2019-05-20 17:46] LABS: ALLEN TEST YES; BE -9.2 mmoll (-3.0-3.0); BLOOD TYPE ARTERIAL; HCO3-(ACT) 17.6 mmoll (20.0-26.0); METHB 0.8 % (0.0-1.5); O2(CT) 14.7 mL/dL (15.0-23.0); PCO2(98.6) 37 mmHg (35-45); PO2(98.6) 56 mmHg (60-100); SAMPLE BLOOD; SAO2 93.6 % (95.0-100.0); THB 11.5 g/dL (11.5-17.4); pH(98.6) 7.27 (7.35-7.45)
[2019-05-20 17:49] LABS: MODALITY BI PAP
[2019-05-20] MEDS ORDERED: QUELICIN IV ONE ×2 (18:14→18:31)
[2019-05-20] MEDS ORDERED: QUELICIN ONE (18:14)
[2019-05-20] MEDS ORDERED: DIPRIVAN 1% 1,000 MG/100 ML BOTTLE ONE (18:14)
[2019-05-20] MEDS ORDERED: AMIDATE ONE (18:14)
[2019-05-20] MEDS ORDERED: AMIDATE IV ONE (18:18)
[2019-05-20] MEDS: DIPRIVAN 1% 1,000 MG/100 ML BOTTLE IV SCH ×2 (19:04→23:17)
--- NOTE | 2019-05-20 19:14 | Diag Imaging Result Doc PS360 ---
EXAM: CHEST/ABD TUBE PLACEMENT HISTORY: ETT and NGT placement TECHNIQUE: Portable chest abdomen COMPARISON: 5:12 AM FINDINGS: Interval placement of an endotracheal tube. The tip is at the duong angled toward the right. This should be pulled back 2 to 3 cm. A nasogastric tube overlies the esophagus and stomach. Electronically signed by Jean Vasquez 05/20/2019 7:12 PM
[2019-05-20 20:32] LABS: ALLEN TEST YES; BE -8.4 mmoll (-3.0-3.0); BLOOD TYPE ARTERIAL; HCO3-(ACT) 18.4 mmoll (20.0-26.0); METHB 1.1 % (0.0-1.5); O2(CT) 15.6 mL/dL (15.0-23.0); O2HB 95.8 % (95.0-99.0); PCO2(98.6) 29 mmHg (35-45); PO2(98.6) 76 mmHg (60-100); SAMPLE BLOOD; SAO2 98.7 % (95.0-100.0); SRATE 18 BPM; THB 11.5 g/dL (11.5-17.4); TVOL 500 mL; pH(98.6) 7.35 (7.35-7.45)
[2019-05-20 20:33] LABS: MODALITY VENTILATOR
[2019-05-20] MEDS: NEO-SYNEPHRINE 50 MG in NS 250 ML IV SCH (23:44)
[2019-05-21] MEDS: ATIVAN IV PRN ×3 (00:03→20:48)
[2019-05-21] MEDS: ATIVAN 20 MG in NS 190 ML IV SCH ×5 (00:42→20:47)
[2019-05-21] MEDS ORDERED: VANCOMYCIN 1 GM/NS 1 GM/250 ML IVPB IV SCH ×2 (01:00→12:00)
[2019-05-21] MEDS: NS 1,000 ML IV SCH ×3 (01:12→21:53)
[2019-05-21] MEDS: TYLENOL PO PRN ×3 (01:43→23:19)
[2019-05-21] MEDS: CARDIZEM 100 MG/NS 100 MG/100 ML IVPB IV SCH ×3 (04:20→18:47)
[2019-05-21 05:19] LABS: ALLEN TEST YES; BE -11.8 mmoll (-3.0-3.0); BLOOD TYPE ARTERIAL; HCO3-(ACT) 15.7 mmoll (20.0-26.0); O2(CT) 13.4 mL/dL (15.0-23.0); O2HB 96.5 % (95.0-99.0); PCO2(98.6) 25 mmHg (35-45); PO2(98.6) 72 mmHg (60-100); SAMPLE BLOOD; SAO2 99.8 % (95.0-100.0); SRATE 12 BPM; THB 9.8 g/dL (11.5-17.4); TVOL 500 mL; pH(98.6) 7.32 (7.35-7.45)
[2019-05-21 05:26] LABS: MODALITY VENTILATOR
[2019-05-21] MEDS: DUONEB (A & A) INH SCH ×6 (06:03→23:45)
[2019-05-21] MEDS: NEO-SYNEPHRINE 50 MG in NS 250 ML IV SCH ×5 (06:20→22:37)
[2019-05-21] MEDS: SYNTHROID PO SCH (06:32)
[2019-05-21 06:59] LABS: BASO# 0.02 X1000 (0.0-0.2); BASO% 0.1 % (0.0-0.8); EOS# 0.01 X1000 (0.0-0.7); EOS% 0.1 % (0.0-10.0); HEMATOCRIT 32.1 % (37.0-47.0); HEMOGLOBIN 9.9 g/dL (12.0-16.0); IMM GRAN% 0.6 % (0.0-0.5); LYMPH# 1.52 X1000 (1.2-3.4); LYMPH% 9.5 % (20.5-51.1); MCH 24.8 PG (27-31); MCHC 30.8 g/dL (33-37); MCV 80.5 FL (81-99); MONO# 0.61 X1000 (0.11-0.59); MONO% 3.8 % (1.7-9.3); MPV 11.1 FL (7.4-10.4); NEUT# 13.67 X1000 (1.4-6.5); NEUT% 85.9 % (42.2-75.2); PLT 271 X1000 (130-400); RBC 3.99 XMIL (4.2-5.4); RDW 18.5 % (11.5-14.5); WBC 15.93 X1000 (4.8-10.8)
[2019-05-21 07:02] LABS: ALB/GLOB RATIO 0.8; ALBUMIN 2.7 g/dL (3.5-5.0); CALCIUM 8.1 mg/dL (8.8-10.2); CREATININE 1.7 mg/dL (0.5-0.9); POTASSIUM 3.4 mmol/L (3.5-5.1); TOTAL BILIRUBIN 0.34 mg/dL (0.20-1.00); TOTAL PROTEIN 5.9 g/dL (6.3-8.3)
[2019-05-21] MEDS ORDERED: GAMUNEX-C 10% IV ONE (07:30)
--- NOTE | 2019-05-21 08:06 | Diag Imaging Result Doc PS360 ---
EXAM: CHEST-1 VIEW - 05/21/2019 HISTORY: Dyspnea TECHNIQUE: Portable chest one view COMPARISON: 05/20/2019 FINDINGS: There is an endotracheal tube is tip approximately 3 cm above the duong. There is an orogastric tube extending to the mid stomach. There are bilateral infiltrates which are most prominent on the right. These are grossly similar to prior, allowing for decreased patient rotation on the current exam compared to the prior exam. There is a possible tiny right pleural effusion. There is no pneumothorax identified. IMPRESSION: Bilateral infiltrates, most prominent on the right, similar to prior. Electronically signed by Reji Braxton 05/21/2019 8:04 AM
[2019-05-21 08:37] LABS: ANISOCYTOSIS 1+; LYMPHS 9 % (21-51); MONO 4 % (1-9); SEGS 87 % (42-75)
[2019-05-21 08:38] LABS: BURR CELLS 1+; MICROCYTOSIS 1+; POIKILOCYTOSIS 1+
[2019-05-21] MEDS: LOPRESSOR PO SCH (09:26)
[2019-05-21] MEDS: MYCOSTATIN SUSP PO SCH ×4 (09:32→21:53)
[2019-05-21] MEDS: LOVENOX SUBQ SCH (09:32)
[2019-05-21] MEDS: PROTONIX IV SCH (09:32)
[2019-05-21] MEDS ORDERED: POTASSIUM CHLORIDE 10% LIQUID PO ONE (10:57)
[2019-05-21] MEDS: ZYLOPRIM PO SCH (11:16)
[2019-05-21] MEDS: ROCEPHIN 2 GM in NS 50 ML IV SCH ×2 (11:21→22:37)
--- NOTE | 2019-05-21 12:12 | CARDIOLOGY PROGRESS NOTE ---
DATE: 05/21/2019 CHIEF COMPLAINT: Dyspnea, respiratory failure. SUBJECTIVE: Ms. Duran remains unresponsive. A chest x-ray today shows bilateral infiltrates most prominent on the right side, unchanged. OBJECTIVE: Vital signs: She is on Marcelino-Synephrine, but blood pressure is 89/46, temperature 101.1, pulse 84 on Cardizem 15 mg an hour, respiratory rate 39. The patient is unresponsive. HEENT: Orotracheal intubation. Diminished breath sounds diffusely with rhonchi. Heart sounds are distant, irregularly irregular. Abdomen is soft. Extremities showed decreased pulses. No obvious edema. Neurologic: Basically she is stuporous, comatose. DIAGNOSTIC DATA: Hemoglobin is 9.9 g, hematocrit 32.1%, white cell count 15,930. Sodium is 142, potassium 3.4, BUN is 33, creatinine 1.7. IMPRESSION: 1. The patient has Haemophilus influenzae pneumonia with positive blood culture for Haemophilus influenzae. She has hypoxemic respiratory failure secondary to that. 2. Paroxysmal atrial fibrillation. This is a secondary phenomenon. Really not the primary reason for her being so sick. 3. History of hypertension. 4. History of hyperlipidemia. RECOMMENDATIONS: At this time, the patient is really profoundly ill. Prognosis is pretty grim. I would suggest to consider do not resuscitate status for her. We will continue to assist in the management of atrial fibrillation in her case. cc: MD Miri Mcintosh MD
--- NOTE | 2019-05-21 13:32 | PROGRESS NOTE ---
DATE: 05/21/2019 SUBJECTIVE: Over the course of the last 24 hours, unfortunately, the patient's overall condition has declined considerably. Yesterday morning, patient attempted respiratory support without BiPAP therapy. Unfortunately, this proved unsuccessful. BiPAP therapy was replaced. Throughout the day, patient was uncomfortable and anxious, but tolerated this reasonably well. By early afternoon, patient's overall condition began to decline. The patient developed increasing oxygen requirements. Blood pressure decreased and heart rate increased. The patient ultimately required placement of mechanical ventilation. She tolerated this reasonably well. Since being on mechanical ventilation, patient's blood pressures have been marginal. She continues to require significant ventilatory support. This morning, upon my arrival, patient is over breathing the vent. Pressures are marginal despite Marcelino-Synephrine therapy. Oxygenation is acceptable, but only with 100% oxygen and increased PEEP. The patient's urine output has decreased considerably over the last 12 hours. Fever has increased. Ultimately, patient's blood cultures returned positive for Haemophilus influenzae. OBJECTIVE: T-max 102.8 degrees. Heart rate 78 to 133. Respirations 31 to 41. Blood pressure 63- 189/37-110.General: But uncomfortable on mechanical ventilation. Cardiovascular: Irregularly irregular. No significant murmurs, rubs, or gallops. Pulmonary: Coarse breath sounds bilaterally. Abdomen: Soft, nontender, nondistended. Decreased bowel sounds. Extremities: No significant clubbing, cyanosis, 1 to 2+ lower extremity edema bilaterally. Dermatologic: Evaluation reveals no evidence of rash. LABORATORY DATA: White blood cell count 15.93, hemoglobin 9.9, hematocrit 32.1, platelet counts 271,000. Sodium 142, potassium 3.4, chloride 109, bicarb 12, BUN 33, creatinine 1.7, glucose 62, calcium 8.1, total bilirubin 0.34, total protein 5.9, albumin 2.7, alkaline phosphatase 77, AST 32, ALT 11. ASSESSMENT AND PLAN: 1. Pneumonia secondary to Haemophilus influenzae with associated bacteremia and sepsis -- the patient was immediately placed on appropriate IV antibiotics in the emergency department. Aggressive hydration has been pursued. Unfortunately, despite these interventions, patient's overall condition has continued to rapidly decline. I appreciate Dr. Jimenez and Dr. King's consultation. For now, we will continue aggressive IV antibiotic intervention with Rocephin. We will continue bronchodilators and mechanical ventilation. Pressor support will be continued and escalated as necessary. We will attempt to increase IV fluids, however I am concerned with the patient's marginal respiratory status. 2. Respiratory failure secondary to Haemophilus influenzae pneumonia and sepsis -- we will continue patient on ventilatory support. Unfortunately, despite aggressive interventions, patient's condition continues to decline. We will defer ventilatory management to Dr. King. We will continue IV antibiotics as noted. Bronchodilators will also be continued. 3. Atrial fibrillation with rapid ventricular response -- patient developed this overnight. The patient is being managed with Cardizem per Cardiology. 4. Hypotension -- this is a consequence of her underlying sepsis. We will continue IV fluids and pressor support as noted. 5. Acute renal failure -- this is a new diagnosis. This likely is secondary to acute tubular necrosis in the setting of sepsis. We will continue IV fluids as noted. We will consult Dr. Nicole for further management. 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 We will provide the patient with IVIG today. 7. Hypothyroidism -- we will continue patient on levothyroxine replacement. 8. Hypokalemia -- we will provide 20 mEq of potassium today. I do this cautiously in the setting of renal failure, but with atrial fibrillation, I do feel adequate potassium repletion is necessary. 9. Depression/anxiety -- we will hold Zoloft and Cymbalta for now. 10. Reflux disease -- we will continue patient on pantoprazole therapy. 11. Prophylaxis -- we will continue patient on low-dose Lovenox. 12. Prognosis -- I discussed the patient's condition in great detail with the patient's daughters and . Each understand the severity of her illness and significant possibility she will be unable to recover from her acute illness. The patient will be made a No Code Blue level 1. We will continue ventilatory support. We will also continue escalating care including adding pressors if necessary. We will, however, not pursue ACLS intervention should she develop an arrhythmia or asystole. 13. Disposition -- patient continues to require skilled care in the ICU setting. cc: MD Miri Street MD
--- NOTE | 2019-05-21 14:48 | NEPHROLOGY CONSULTATION ---
DATE: 05/21/2019 REASON FOR CONSULTATION: Acute kidney injury. HISTORY OF PRESENT ILLNESS: Mr. Duran is 89-year-old white female who has been in the hospital since the . Primary care provider is Dr. Srikanth Lara. He discussed the case directly with me this morning. She has multiple medical problems but came to the hospital because of worsening cough with sputum production, wheezing. She was admitted with a diagnosis of pneumonia. She received IV antibiotics but her status worsened and ultimately required intubation. In that context, she had profound hypotension that require treatment with vasopressor support. She also required Cardizem for atrial fibrillation with rapid ventricular response. In this context, her creatinine was 0.8 on presentation and has risen slowly since that date. 1.7 today. She has received vancomycin as well as Levaquin. She is off of both of these medications. She has not received IV contrast. PAST MEDICAL HISTORY: As above. CURRENT MEDICATIONS: Include DuoNeb, Synthroid, Mycostatin, Zyloprim, Haldol, Protonix, Lovenox, Rocephin, Geodon, Marcelino-Synephrine, Ativan, Cardizem. ALLERGIES: Iodinated contrast. Social history, family history, review of systems otherwise noncontributory. She does not use alcohol or tobacco. PHYSICAL EXAMINATION: Vital Signs: Blood pressure 89/46, heart rate 84, respirations 39, temperature 101.1 degrees. General: Elderly woman sedated on the ventilator. She appears to be in acute distress with increased respiratory rate of around 35 to 40 with accessory muscle use. Skin is warm and dry. Conjunctivae are pink. Pupils are equal. Oropharynx is dry. Neck: Neck veins are not appreciated. Heart: Regular and tachycardic. Lungs: Equal with increased respiratory rate and dry, few scattered crackles. Abdomen: Soft, nontender. Bowel sounds are not appreciated. No organomegaly. Extremities: Minimal edema. No clubbing or cyanosis. IMPRESSION: Acute kidney injury. She is at high risk for ischemic acute tubular necrosis. I have reviewed her care directly with Dr. Lara. He has made all the appropriate changes with regard to her medications and we do not have any other changes to make at this time. We will continue her gentle IV fluids at 75 mL/h of normal saline. We will follow with you. cc: MD Miri Beth MD
[2019-05-21] MEDS: D50W SYRINGE IV PRN (22:34)
[2019-05-22] MEDS: NS 1,000 ML IV SCH ×2 (00:08→06:07)
[2019-05-22] MEDS: ATIVAN 20 MG in NS 190 ML IV SCH ×3 (00:37→09:38)
[2019-05-22] MEDS: NEO-SYNEPHRINE 50 MG in NS 250 ML IV SCH ×4 (02:15→09:41)
[2019-05-22] MEDS ORDERED: NS 500 ML IV ONE (02:54)
[2019-05-22] MEDS ORDERED: LEVOPHED 8 MG in D5 1/2 NS 250 ML IV SCH (03:00)
[2019-05-22] MEDS: DUONEB (A & A) INH SCH ×2 (03:32→08:01)
[2019-05-22 04:50] LABS: ALLEN TEST YES; BE -25.3 mmoll (-3.0-3.0); BLOOD TYPE ARTERIAL; HCO3-(ACT) 5.2 mmoll (20.0-26.0); METHB 0.8 % (0.0-1.5); O2HB 98.1 % (95.0-99.0); PCO2(98.6) 24 mmHg (35-45); PO2(98.6) 161 mmHg (60-100); SAMPLE BLOOD; SRATE 12 BPM; THB 9.9 g/dL (11.5-17.4); TVOL 500 mL
[2019-05-22 04:52] LABS: MODALITY VENTILATOR; pH(98.6) 6.95 (7.35-7.45)
[2019-05-22] MEDS ORDERED: SODIUM BICARBONATE 8.4% IV PUSH ONE (05:51)
--- NOTE | 2019-05-22 06:04 | Diag Imaging Result Doc PS360 ---
EXAM: CHEST-1 VIEW HISTORY: Dyspnea TECHNIQUE: Two views COMPARISON: 05/21/2019 FINDINGS: No change in the endotracheal tube or nasogastric tube. The heart is not enlarged. There is pulmonary edema and infiltrates, findings more pronounced on the right than the left. Infiltrates in the upper right lung are less prominent than on the prior study. There is likely a small right pleural effusion. IMPRESSION: Mild interval improvement. Electronically signed by Jean Vasquez 05/22/2019 6:02 AM
[2019-05-22] MEDS: D50W SYRINGE IV PRN (06:07)
[2019-05-22] MEDS: SYNTHROID PO SCH (06:07)
[2019-05-22 06:42] LABS: BASO# 0.14 X1000 (0.0-0.2); BASO% 0.7 % (0.0-0.8); EOS# 0.14 X1000 (0.0-0.7); EOS% 0.7 % (0.0-10.0); HEMATOCRIT 32.6 % (37.0-47.0); HEMOGLOBIN 9.5 g/dL (12.0-16.0); IMM GRAN# 1.24 X1000 (0.0-0.04); IMM GRAN% 5.8 % (0.0-0.5); LYMPH# 2.48 X1000 (1.2-3.4); LYMPH% 11.7 % (20.5-51.1); MCH 24.9 PG (27-31); MCHC 29.1 g/dL (33-37); MCV 85.6 FL (81-99); MONO# 1.52 X1000 (0.11-0.59); MONO% 7.2 % (1.7-9.3); MPV 11.7 FL (7.4-10.4); NEUT# 15.71 X1000 (1.4-6.5); NEUT% 73.9 % (42.2-75.2); PLT 275 X1000 (130-400); RBC 3.81 XMIL (4.2-5.4); RDW 20.1 % (11.5-14.5); WBC 21.23 X1000 (4.8-10.8)
[2019-05-22 06:58] LABS: ALB/GLOB RATIO 0.5; CALCIUM 7.4 mg/dL (8.8-10.2); CREATININE 3.1 mg/dL (0.5-0.9); POTASSIUM 5.1 mmol/L (3.5-5.1); TOTAL BILIRUBIN 0.58 mg/dL (0.20-1.00); TOTAL PROTEIN 5.8 g/dL (6.3-8.3)
[2019-05-22] MEDS: PROTONIX IV SCH (09:59)
[2019-05-22] MEDS: MYCOSTATIN SUSP PO SCH (09:59)
[2019-05-22] MEDS: LOVENOX SUBQ SCH (09:59)
[2019-05-22] MEDS: ZYLOPRIM PO SCH (09:59)
[2019-05-22] MEDS: ROCEPHIN 2 GM in NS 50 ML IV SCH (10:00)
[2019-05-22] MEDS ORDERED: D50W SYRINGE IV PRN (10:22)
[2019-05-22 12:31] VITALS: BP 38/28
--- NOTE | 2019-05-22 13:06 | PROGRESS NOTE ---
DATE: 05/22/2019 SUBJECTIVE: Over the course of the last 24 hours, unfortunately, the patient's condition has continued to decline. The patient's blood pressure has decreased to require 2 pressors. The patient's respiratory status remains marginal despite maximum ventilatory support. She continues to experience elevation in her temperature as high as 101.7 degrees despite maximized medical intervention for her underlying bacteremia and sepsis. Renal function continues to deteriorate with minimal urine output. OBJECTIVE: T-max 102.8 degrees, heart rate 85 to 117, respirations 18 to 32, blood pressure 87- 110/46-59. General: Critically ill. Sedated on the ventilator. No meaningful interaction. Cardiovascular: Slightly tachycardic. Irregularly irregular. No significant murmurs, rubs, or gallops. Pulmonary: Rhonchi and crackles bilaterally. Abdomen: Soft, nontender. Minimally distended with decreased bowel sounds. Extremities: Patient is experiencing mottling of by bilateral lower. There is 1 to 2+ edema. Dermatologic: Evaluation reveals mottling as noted. Laboratory Data: White blood cell count 21.23, hemoglobin 9.5, hematocrit 32.6, platelet count is 275,000. A pH of 7.95, pCO2 of 24, PO2 of 161, bicarbonate 5. Sodium 143, potassium 5.1, chloride 112, bicarb 5, BUN 46, creatinine 3.1, calcium 7.4. Total bilirubin 0.58, total protein 5.8, albumin 2.0, alkaline phosphatase 86, AST 71, ALT 22. ASSESSMENT AND PLAN: 1. Pneumonia secondary to Haemophilus influenzae with associated bacteremia and sepsis- unfortunately, despite maximized medical intervention including intravenous antibiotics and aggressive hydration, her overall condition continues to deteriorate. Patient is currently being treated with Marcelino-Synephrine and Levophed. Pressures are marginal. In the setting of respiratory failure, renal failure, and worsening hemodynamics, a long discussion was held with the patient's family. Comfort measures were deemed most appropriate. We will transition to comfort measures with family at bedside. 2. Respiratory failure secondary to Haemophilus influenzae pneumonia and sepsis- as above, despite maximized ventilatory support, she continues to deteriorate. We will pursue palliative measures. I appreciate Dr. King's consultation. 3. Atrial fibrillation with rapid ventricular response-the patient has been treated with Cardizem per cardiology. Cardizem has been weaned off. The rate is reasonably controlled. 4. Acute renal failure-this likely is a consequence of acute tubular necrosis in the setting of sepsis. Renal function has deteriorated considerably over the last 24 hours, with minimal urine output. Creatinine has increased to 3.1. Again, we will pursue palliation. I appreciate Dr. Nicole's consultation. 5. Hypogammaglobulinemia-this likely contributed to patient's underlying sepsis and the inability to fight infection. She was provided IVIG yesterday. However, this appears to have not provided significant improvement in her condition. 6. Hypothyroidism/depression/anxiety/reflux disease-the patient has continued home medications while hospitalized. 7. Prognosis-at this point, because the likelihood of recovery is extremely low, I had a long discussion with patient's family. All were in agreement that palliative measures were most appropriate. We will transition to palliative intervention. I anticipate the patient will pass today. cc: MD Miri Street MD MTDD
--- NOTE | 2019-05-23 09:13 | EKG Report ---
Test Performed on : 05/21/2019 01:29:45 AM Test Reason : RHYTHM CHANGE Blood Pressure : / mmHG Vent. Rate : 122 BPM Atrial Rate : 300 BPM P-R Int : 000 ms QRS Dur : 078 ms QT Int : 372 ms P-R-T Axes : 000 -27 004 degrees QTc Int : 530 ms Atrial fibrillation. with rapid ventricular response. ST & Marked T wave abnormality, consider lateral ischemia Abnormal ECG No previous ECGs available Confirmed by Caryn DUTTON, Kareem ([id number]) on 05/24/2019 8:48:38 AM
--- NOTE | 2019-06-30 09:51 | DISCHARGE SUMMARY ---
ADMISSION DATE: 05/19/2019 DISCHARGE DATE: 05/22/2019 DISCHARGE DIAGNOSES: 1. Acute respiratory failure with hypoxia requiring BiPAP. 2. Community-acquired pneumonia secondary to Haemophilus influenzae. 3. Severe sepsis associated with Haemophilus influenzae pneumonia. 4. Acute on chronic congestive heart failure secondary to diastolic dysfunction. 5. Immunoglobulin deficiency. 6. Chronic obstructive pulmonary disease. HOSPITAL COURSE: Ms. Sherron Duran presented to the ER complaining of a 2-day history of a cough productive of yellowish-green sputum, shortness of breath, increased work of breathing, pleuritic chest pain, low-grade fever, and chills. Her initial chest x-ray demonstrated infiltrates in the right lung with a small right pleural effusion. A CT scan of the chest demonstrated dense multifocal pneumonia with air bronchograms. The patient was placed on supplemental O2, nebulizer treatments, and broad-spectrum antibiotics including Rocephin and erythromycin. Both blood cultures grew out Haemophilus influenzae. The sputum culture was noted. Based on the culture report, the patient was transitioned from vancomycin and Zosyn to Rocephin 2 g IV q.12 hours, as well as the Levaquin. Immunoglobulins were drawn. IgG antibodies were low. She was given intravenous gamma globulins. Unfortunately, her clinical course continued to deteriorate. She had worsening respiratory failure. She required BiPAP. She had sepsis-induced hypotension requiring multiple pressors. Her kidneys began to fail. In spite of maximum medical therapy, the patient continued to deteriorate clinically. Dr. Lara had a long discussion with the family about withdrawal of care and initiating palliative measures. The family was agreeable to initiating palliative measures and the patient on 05/22/2019. cc: Miri Cabrera MD
== END 2019-05-22 13:02 | disposition expired | DRG 871 ==
LOC: ED 22:06 → 3N 05-19 03:53 → 2N 05-19 09:09 → ICU 05-19 12:59
PROVIDERS: ADMIT Internal Medicine; ATTEND Internal Medicine